=== PATIENT | male | born 2000 | race Caucasian/White ===

== ENCOUNTER 2022-04-11 00:04 | Emergency (ER) | payer SELFPAY ==
[~2022-04-11] VITALS: Ht 175.3 cm; Wt 84.4 kg
[2022-04-11 00:30] VITALS: BP 129/78
--- NOTE | 2022-04-11 02:23 | NUR ---
Patient resting comfortably in bed 12. Patient A/Ox4, chest rise and fall symmetrical, no c/o pain or s/s of discomfort. Patient on monitor.
[2022-04-11] MEDS: LORazepam 1 MG TAB PO ONE (02:55)
--- NOTE | 2022-04-11 03:13 | NUR ---
Patient resting comfortably in bed 12. Patient A/Ox4, chest rise and fall symmetrical, no c/o pain or s/s of discomfort. Patient on monitor.
--- NOTE | 2022-04-11 03:16 | NUR ---
X-Ray at bedside.
[2022-04-11] MEDS ORDERED: ATA25 PO (03:39)
--- NOTE | 2022-04-11 04:00 | NUR ---
Patient resting comfortably in bed 12. Patient A/Ox4, chest rise and fall symmetrical, no c/o pain or s/s of discomfort. Patient on monitor.
[2022-04-11 04:18] VITALS: BP 117/66
== END 2022-04-11 04:19 | disposition home or self-care (01) ==
LOC: MED 00:04
DX: R00.2 Palpitations (principal); Z79.899 Other long term (current) drug therapy
CPT/HCPCS: 71045; 93005; 99283; Q0092

== ENCOUNTER 2022-04-13 13:47 | Emergency (ER) | payer SELFPAY ==
[~2022-04-13] VITALS: Ht 175.3 cm; Wt 80.9 kg
[~2022-04-13 13:47] MED LIST: ATA25 PO
[2022-04-13 14:07] VITALS: BP 121/61
--- NOTE | 2022-04-13 15:29 | NUR ---
21/M PRESENTS TO ED FOR ANXIETY. WAS SEEN HERE ON TUESDAY FOR SAME SYMPTOMS AND STATES HE WANTED TO BE REEVALUATED. PATIENT DENIES CP, SOB OR RECENT TRIGGERING EVENTS.
--- NOTE | 2022-04-13 15:31 | NUR ---
Patient discharged with v/s stable. Written and verbal after care instructions given and explained. Patient verbalized understanding. Ambulatory with steady gait. All questions addressed prior to discharge. Advised to follow up with PMD.
== END 2022-04-13 15:31 | disposition home or self-care (01) ==
LOC: MED 13:47
DX: F41.9 Anxiety disorder, unspecified (principal)
CPT/HCPCS: 99281

== ENCOUNTER 2022-04-13 17:15 | Emergency (ER) | payer SELFPAY ==
[~2022-04-13] VITALS: Ht 174 cm; Wt 84.9 kg
[2022-04-13 17:29] VITALS: BP 130/89
--- NOTE | 2022-04-13 18:00 | NUR ---
BIB SELF FOR RECHECK. SEEN HERE AT 15.07 PM TODAY. C/O HEART PALPITATION , DIZZINESS S/P TAKING ATARAX TODAY. PMH: ANXIETY
[2022-04-13 18:45] LABS: BARBITURATE, URINE NEGATIVE ng/ml (NEG <=200); BENZODIAZEPINE, URINE NEGATIVE ng/mL (NEG <=200); CANNABINOID, URINE NEGATIVE ng/mL (NEG <=50); COCAINE, URINE NEGATIVE ng/mL (NEG <=300); OPIATE, URINE NEGATIVE ng/mL (NEG <=2000); PHENCYCLIDINE SCREEN,URINE NEGATIVE ng/mL (NEG <=25)
[2022-04-13 18:59] LABS: BASOPHILS % (AUTO) 0.3 % (0.0-2.0); EOSINOPHILS % (AUTO) 0.2 % (0.0-4.0); HEMATOCRIT 45.5 % (36-52); HEMOGLOBIN 15.9 g/dL (12.0-18.0); LYMPHOCYTES # (AUTO) 1.4 K/uL (2.0-11.5); LYMPHOCYTES % (AUTO) 23.5 % (20.5-51.1); MEAN CORPUSCULAR HEMOGLOBIN 31 pg (27-31); MEAN CORPUSCULAR HGB CONC 35 g/dL (33-37); MEAN CORPUSCULAR VOLUME 87.6 fL (80-94); MONOCYTES # (AUTO) 0.4 K/uL (0.8-1.0); MONOCYTES % (AUTO) 6.4 % (1.7-9.3); NEUTROPHILS % (AUTO) 69.6 % (42.2-75.2); PLATELET COUNT (AUTO) 234 K/uL (140-450); RED BLOOD CELL COUNT(AUTO) 5.19 MIL/uL (4.20-6.10); RED CELL DISTRIBUTION WIDTH 12.9 % (11.6-13.7); WHITE BLOOD COUNT (AUTO) 5.8 K/uL (4.8-10.8)
[2022-04-13 19:30] LABS: ALBUMIN 4.7 g/dL (3.4-5.0); ANION GAP 15.3 (8-16); ASPARTATE AMINOTRANSFERASE 15 U/L (15-37); CARBON DIOXIDE 25.9 mmol/L (21-32); CHLORIDE 102 mmol/L (98-107); GFR ARICAN-AMERICAN 119 mL/min (>90); GLUCOSE 81 mg/dL (74-106); POTASSIUM 4.2 mmol/L (3.5-5.1); SODIUM SERUM 139 mmol/L (136-145); UREA NITROGEN, BLOOD 14 mg/dL (7-18)
--- NOTE | 2022-04-13 19:32 | NUR ---
PATIETN TO LOBBY
[2022-04-13 20:53] VITALS: BP 127/85
== END 2022-04-13 20:53 | disposition home or self-care (01) ==
LOC: MED 17:15
DX: R00.2 Palpitations (principal)
CPT/HCPCS: 36415; 71045; 80053; 80305; 84484; 85025; 93005; 99285